=== PATIENT | male | born 1980 | race American Indian/Alaskan Native ===

== ENCOUNTER 2018-06-24 18:41 | Emergency (ER) | payer OTHER ==
[2018-06-24] MEDS ORDERED: IBUPROFEN PO ONE (19:09)
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
[2018-06-24] MEDS ORDERED: FLEXERIL PO ONE (19:41)
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
--- NOTE | 2018-06-24 20:39 | Cat Scan Report ---
PROCEDURE: CT CERVICAL SPINE WO CON HISTORY: pain FINDINGS: Unenhanced CT of the cervical spine was performed and data was reformatted into sagittal an d coronal planes. These images demonstrate no fracture or malalignment of the cervical spine. There is endplate remodel ing at C5-C6 and C6-C7. The pulmonary apices appear clear. IMPRESSION: No fracture is seen in the cervical spine This document is electronically signed by Randy Payton MD., Jun 24 2018 08:37:33 PM ET
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
--- NOTE | 2018-06-24 22:05 | Cat Scan Report ---
PROCEDURE: CT HEAD/BRAIN WO CON HISTORY: pain FINDINGS: Unenhanced CT of the brain was performed and demonstrates no acute intracranial hemorrhage, extra-axial fluid collection, midline shift or mass effect. The ventricles and basal cisterns are no t effaced. The mastoid air cells and middle ears appear clear. There are bilateral maxillary polyps versus mucou s retention cysts. There is no evidence of acute sinusitis. IMPRESSION: No acute intracranial hemorrhage This document is electronically signed by Randy Payton MD., Jun 24 2018 08:32:37 PM ET
[2018-06-24 22:31] VITALS: BP 154/77
== END 2018-06-24 22:54 | disposition home or self-care (01) ==
LOC: ED 18:41 → EEVIPCON 18:41 → ED 22:54
DX: S29.011A Strain of muscle and tendon of front wall of thorax, initial encounter (principal); S93.601A Unspecified sprain of right foot, initial encounter; M62.838 Other muscle spasm; G44.319 Acute post-traumatic headache, not intractable; X58.XXXA Exposure to other specified factors, initial encounter; Y93.89 Activity, other specified; Y92.89 Other specified places as the place of occurrence of the external cause; Y99.8 Other external cause status
CPT/HCPCS: 70450; 71046; 72125